=== PATIENT | male | born 2005 | race Caucasian/White ===

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

== ENCOUNTER 2024-09-08 17:28 | Emergency (ER) | payer MEDICAID ==
[2024-09-08 17:41] VITALS: O2SAT 99
[2024-09-08] MEDS ORDERED: BABY ASPIRIN 81 MG CHEW ONE (17:54)
[2024-09-08 17:56] LABS: Absolute Neutrophil Ct (ANC) 4.05 x10^3/uL (1.78-5.38); BASOPHIL % 0.8 % (0.2-1.2); Basophil (Absolute #) 0.05 x10^3/uL (0.01-0.08); Eosinophil % 1.1 % (0.8-7.0); Eosinophil (Absolute #) 0.07 x10^3/uL (0.04-0.54); Hematocrit 47.5 % (40.1-51.0); Hemoglobin 15.7 g/dL (13.7-17.5); IMMATURE GRAN # 0.02 x10^3u/L (0.001-0.031); IMMATURE GRAN % 0.3 % (0.001-0.429); Lymphocyte (Absolute #) 1.39 x10^3/uL (1.32-3.57); Lymphocytes % 22.7 % (21.8-53.1); Mean Cell Volume 87.6 fL (79.0-92.2); Mean Corpuscular Hgb Concent. 33.1 g/dL (32.3-36.5); Mean Platelet Volume 9.3 fL (9.4-12.4); Monocyte (Absolute #) 0.54 x10^3/uL (0.30-0.82); Monocytes % 8.8 % (5.3-12.2); Neutrophil % 66.3 % (34.0-67.9); Platelet Count 288 x10^3/uL (163-337); Red Blood Count 5.42 x10^6/uL (4.63-6.08); Red Cell Distribution Width 13.2 % (11.6-14.4); White Blood Count 6.1 x10^3/uL (4.23-9.07)
[2024-09-08] MEDS: BABY ASPIRIN 81 MG CHEW PO ONE (17:57)
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
[2024-09-08 18:10] LABS: ALBUMIN 4.8 g/dL (3.5-5.0); BILIRUBIN,TOTAL 0.5 mg/dL (0.2-1.3); Calcium 9.6 mg/dL (8.4-10.2); Creatinine 1 0.78 mg/dL (0.66-1.25); EST GLOMERULAR FILTRATION RATE 131.8 ML/MIN; Potassium 3.9 mmol/L (3.5-5.1); Total Protein 7.2 g/dL (6.3-8.2)
[2024-09-08 18:44] VITALS: BP 135/88; PULSE 65; RESP 15; TEMP 97.6
--- NOTE | 2024-09-09 09:50 | XRAY ---
Indication: Chest pain. Short of breath. Comparison: January 19, 2018 Portable chest again demonstrates normal heart, lungs, and bony thorax.
== END 2024-09-08 19:00 | disposition home or self-care (01) ==
LOC: ED 17:28
DX: R07.89 Other chest pain (principal); R03.0 Elevated blood-pressure reading, without diagnosis of hypertension
CPT/HCPCS: 36415; 71045; 80053; 84484; 85025; 85379; 93005; 93041; 99284; 99285; A9270-GY